=== PATIENT | female | born 1995 | race Hispanic/Latino ===

== ENCOUNTER 2021-07-24 14:31 | Emergency (ER) | payer OTHER, SELFPAY ==
[2021-07-24 14:38] VITALS: BP 98/72; PULSE 109; RESP 16; TEMP 36.9; O2SAT 99
[2021-07-24 14:39] VITALS: BP 98/72; PULSE 109; RESP 16; TEMP 36.9; O2SAT 99
--- NOTE | 2021-07-24 15:01 | ED.GENADULT ---
HPI - General Adult General Chief complaint: Upper Respiratory Infection Stated complaint: SWOLLEN LYMPH NODE Time Seen by Provider: 07/24/21 14:55 Source: patient, RN notes reviewed and old records reviewed Mode of arrival: ambulatory Limitations: no limitations History of Present Illness HPI narrative: 26 year old female who presents to [facility] with complaints of swollen lymph node to the right side of her neck since yesterday that increases in discomfort when she eats. Patient denies any fevers, chills or sweats, no body aches, denies any cough or congestion some sinus drainage reported but states history of sinus allergies.Patient reports that she had episode of nausea and vomiting 2 nights ago and then next day she had the enlarged lymph node. Patient is 10 weeks . MD complaint: swollen lymph node right neck Onset (ago): day(s) (2) Quality: aching Treatments prior to arrival: none Related Data Allergies Allergy/AdvReac Type Severity Reaction Status Date / Time No Known Allergies Allergy Verified 07/24/21 14:39 Review of Systems Review of Systems: CONSTITUTIONAL: Denies fever, chills, or sweats. EYES: Denies visual changes, redness, or discharge. ENT: Positive rhinorrhea, no congestion,some sore throat,denies otalgia.positive for swollen lymph node right neck CARDIOVASCULAR: Denies chest pain, palpitations, or edema. RESPIRATORY: Denies cough or dyspnea. GASTROINTESTINAL: Denies abdominal pain, nausea, vomiting, or diarrhea. GENITOURINARY: Denies dysuria or hematuria. SKIN: Denies rash or itching. MUSCULOSKELETAL: Denies back pain, joint pain, or myalgia. NEUROLOGIC: Denies headache, numbness, or weakness. PSYCHIATRIC: Denies anxiety or depression. All systems reviewed & are unremarkable except as noted in HPI and below PMFSH Past Medical History Medical History (Updated 07/24/21 @ 15:43 by Juju Avalos NP) Seasonal allergies Surgical History Surgical History (Updated 07/24/21 @ 15:44 by Juju Avalos NP) No history of previous surgery Social History Social History (Updated 07/24/21 @ 15:16 by Juju Avalos NP) Smoking status: Never smoker Substance use: never Living arrangements: with family Gender identity (if verbalized by the patient): Female Comments At time of signature, agree with nursing past medical, surgical, social and family history. There is no relevant family history pertinent to the presenting complaint Exam Narrative: GENERAL: Well-appearing, well-nourished, and in no acute distress. HEAD: Normocephalic, atraumatic. EYES: PERRLA and EOMI. ENT: Nares patent with clear rhinorrhea no epistaxis. Mucous membranes moist.TM's normal with good light reflex NECK: Supple.swollen right submandibular lymph node CHEST: Clear to auscultation. No respiratory distress.SAO2 99% on room air HEART: Regular rate and rhythm. No murmur heard. Normal peripheral pulses. ABDOMEN: Soft, nontender, nondistended, normal active bowel sounds. EXTREMITIES: Normal range of motion. No edema. SKIN: Warm, dry, no rash. NEURO: No focal deficits. Alert and oriented x3. Course Course Level of Care: Express Care Visit Vital Signs Vital signs: Vital Signs Temperature 36.9 C 07/24/21 14:38 Pulse Rate 109 H 07/24/21 14:38 Respiratory Rate 16 07/24/21 14:38 Blood Pressure 98/72 L 07/24/21 14:38 Pulse Oximetry 99 07/24/21 14:38 Temperature 36.9 C 07/24/21 14:39 Pulse Rate 109 H 07/24/21 14:39 Respiratory Rate 16 07/24/21 14:39 Blood Pressure 98/72 L 07/24/21 14:39 Pulse Oximetry 99 07/24/21 14:39 Medical Decision Making Differential Diagnosis Differential Diagnosis: enlarged lymph node, mononucleosis, strep pharyngitis, lymphadenopathy Medical Records Medical records reviewed: Yes I reviewed the external patient's medical records. Vital Signs Vital Signs: Vital Signs Temperature 36.9 C 07/24/21 14:38 Pulse Rate 109 H 07/24/21 14:38 Respira
== END 2021-07-24 15:40 | disposition home or self-care (01) ==
PROVIDERS: Emergency Provider Registered Nurse
DX: O90.89 Other complications of the puerperium, not elsewhere classified (principal); R59.9 Enlarged lymph nodes, unspecified; Z3A.10 10 weeks gestation of pregnancy
CPT/HCPCS: 36416; 86308; 87081; 87880; 99213; G0463